=== PATIENT | male | born 1940 | race Caucasian/White ===

== ENCOUNTER 2020-02-17 02:34 | Inpatient (IN) ==
[2020-02-17] MEDS ORDERED: LACTATED RINGERS 500 ML IV PRN (02:37)
[2020-02-17] MEDS ORDERED: SODIUM BICARBONATE VIAL 150 MEQ in DEXTROSE 5% IN WATER 850 ML IV SCH (02:45)
[2020-02-17] MEDS ORDERED: SODIUM BICARBONATE 50 MEQ/50 ML VIAL ONE (04:01)
[2020-02-17 06:40] LABS: Basophils # (Auto) 0.01 K/mcL (0.00-0.20); Basophils % (Auto) 0.1 % (0.0-2.0); Eosinophils # (Auto) 0.01 K/mcL (0.00-0.70); Eosinophils % (Auto) 0.1 % (0.0-7.0); Hematocrit 36.3 % (41.0-55.0); Lymphocytes # (Auto) 2.23 K/mcL (1.50-4.80); Lymphocytes % (Auto) 19.8 % (15.0-49.0); Mean Cell Volume 93.1 fL (80.0-100.0); Mean Corpuscular HGB Conc 33.1 g/dL (31.0-36.0); Mean Platelet Volume 9.7 fL (7.4-10.4); Monocytes # (Auto) 1.08 K/mcL (0.10-0.90); Monocytes % (Auto) 9.6 % (1.0-12.0); Neutrophils % (Auto) 70.4 % (38.0-78.0); Platelet Count 162 K/mcL (140-440); WBC 11.3 K/mcL (4.5-11.0)
[2020-02-17 07:15] LABS: Appearance,Urine CLOUDY (Clear); Bilirubin,Urine Negative (Negative); Color,Urine YELLOW; Culture Indicated,Urine No; Glucose,Urine (UA) Negative (Negative); Ketones,Urine 5 mg/dL (Negative); Leukocyte Esterase,Urine Negative /ug (Negative); Mucus,Urine MOD /hpf; Nitrate,Urine Negative (Negative); Protein,Urine 100 mg/dL (Negative); Specific Gravity,Urine 1.014 (1.000-1.035); Urine Amorphous Crystals FEW /hpf; Urine Blood >=1.0 mg/dL (Negative); Urine Granular Cast 21 /lph (0-0); Urine Hyaline Cast 32 /lph (0-2); Urine RBC 0 /hpf (0-1); Urine Squamous Epithelial Cell < 1 /hpf (0-4); Urine Transitional Epi Cells 1 /hpf (0-2); Urine WBC 5 /hpf (0-4); Urobilinogen,Urine Negative
[2020-02-17 07:30] LABS: Creatine Kinase MB 121.5 ng/mL (<6.7)
--- NOTE | 2020-02-17 07:48 | Internal Med History&Physical ---
HPI History of Present Illness Patient information: Note initiated : 02/17/20 at 7:43 am Service Date, if different from initiated Date: [] Patient: Harley Adkins 79 y/o M admitted on 02/17/20 for Acute Renal Failure. Chief Complaint: [] History of present illness: Mr. Adkins is a 79 year old M Who fell several days ago in his bathroom. He says he was wedged between the toilet and the cabinet. He was little unable to get up and then became so stiff he could move. He says he stayed there for day and a half. And started pounding on the wall and his neighbor heard him came in and called EMS who was able to get him up ambulating. He was evaluated in [facility] he had x-rays done which were unremarkable. Old notes he has a history of falling. In the ED at [facility] was evaluated and found to have acute kidney injury. The rhabdomyolysis. He was transferred to [facility] due to staffing issues at [facility] Feels much better with IV fluid hydration. Review of Systems: Pertinent positives as above. Denies head ache/fever/chills/nausea/vomiting/chest or abdominal pain/cough/dyspnea/diarrhea. Remaining 10 point review of system reviewed negative PFSH PFSH All Active Problems (Updated 01/20/20 @ 15:26 by SHYANNE Keita) Renal failure (Acute) Chronic pain after cancer treatment (Acute) Hx of CT scan (Chronic ~08/2017) CRF (chronic renal failure) (Chronic ~08/2009) History of MRI (Chronic) Primary bladder squamous cell carcinoma (Chronic ~1997) B-cell lymphoma (Chronic) Low back pain (Chronic) Neuropathy (Chronic) Hx of bladder cancer (Chronic) Cigarette nicotine dependence (Chronic) Localized swelling, mass and lump, unspecified (Chronic) Other cervical disc degeneration, unspecified cervical region (Chronic) Chronic pain syndrome (Chronic) Candidiasis (Chronic) Hyperkalemia (Chronic) Physical exam (Chronic) Carotid artery disease (Chronic) Encounter for screening, unspecified (Chronic) Lumbar back pain with radiculopathy affecting lower extremity (Acute) History of excision of lesion (Chronic) H/O cystoscopy (Chronic) History of surgery (Chronic) History of surgery (Chronic) H/O colonoscopy (Chronic) CAD (coronary artery disease) (Chronic) Cholelithiasis (Chronic) Abnormal liver function test (Chronic) Neck pain (Chronic) Vitamin B 12 deficiency (Chronic) Degeneration, intervertebral disc, cervical (Chronic) Leg edema (Chronic) Candidiasis of skin (Chronic) Chronic rhinitis (Chronic) Tobacco use (Chronic) Cigarette smoker (Chronic) Pipe smoker (Chronic) Abnormal carotid ultrasound (Chronic) AAA (abdominal aortic aneurysm) (Chronic) Lung nodule (Chronic) Chronic pain (Chronic) Elevated LFTs (Chronic ~08/2009) Gout (Chronic ~07/2009) Herpes zoster (Chronic ~05/2008) Multiple lipomas (Chronic) Back pain with radiculopathy (Chronic) History of scarlet fever (Chronic) Rash (Chronic) Arthritis (Chronic) Hepatitis A (Chronic) Lactose intolerance (Chronic) Pain management contract agreement (Chronic ~05/2016) Heart murmur (Chronic) IgM lambda monoclonal gammopathy (Chronic) Atherosclerosis (Chronic) Hx of cataract surgery (Chronic) Back pain (Chronic) H/O angioplasty (Chronic) Non-Hodgkin lymphoma (Chronic) Small cell b-cell lymphoma, extranodal and solid organ sites (Chronic) Monoclonal gammopathy (Chronic) Vitamin D deficiency (Chronic) Spondylosis (Chronic) Renal osteodystrophy (Chronic) PVD (peripheral vascular disease) (Chronic) Hyperlipidemia (Chronic) Hypertension (Chronic) Personal history of other endocrine, metabolic, and immunity disorders (Chronic) Congenital single renal cyst (Chronic) CKD (chronic kidney disease), stage III (Chronic) Bladder cancer (Chronic) Medical History (Updated 01/20/20 @ 15:26 by SHYANNE Keita) AAA (abdominal aortic aneurysm) (Chronic) Plaque Abnormal carotid ultrasound (Chronic) 09/03 <50% Abnormal liver function test (Chronic) Arthritis (Chronic) Atherosclerosis (Chronic) B-cell lymphoma (Chronic) DR LUI Back pain (Chronic) Nonmalignant back pain Back pain with radiculopathy (Chronic) along his spine Bladder cancer (Chronic) 1997, 2000 CAD (coronary artery disease) (Chronic) Candidiasis (Chronic) Candidiasis of skin (Chronic) Carotid artery disease (Chronic) Cholelithiasis (Chronic) Chronic pain (Chronic) Chronic pain syndrome (Chronic) Chronic rhinitis (Chronic) Cigarette nicotine dependence (Chronic) Cigarette smoker (Chronic) CKD (chronic kidney disease), stage III (Chronic) Congenital single renal cyst (Chronic) CRF (chronic renal failure) (Chronic ~08/2009) STAGE 3, REFERRED TO NEPHROLOGY Degeneration, intervertebral disc, cervical (Chronic) Elevated LFTs (Chronic ~08/2009) Stop statin Encounter for screening, unspecified (Chronic) Gout (Chronic ~07/2009) Left elbow Heart murmur (Chronic) Hepatitis A (Chronic) Herpes zoster (Chronic ~05/2008) Left lateral abdomen History of MRI (Chronic) 15 YRS AGO History of scarlet fever (Chronic) Hx of bladder cancer (Chronic) Hx of CT scan (Chronic ~08/2017) LUNG, NODULE Hyperkalemia (Chronic) Hyperlipidemia (Chronic) Hypertension (Chronic) IgM lambda monoclonal gammopathy (Chronic) Lactose intolerance (Chronic) Leg edema (Chronic) Localized swelling, mass and lump, unspecified (Chronic) Low back pain (Chronic) Lumbar back pain with radiculopathy affecting lower extremity (Acute) Lung nodule (Chronic) 08/03 CT of lungs Monoclonal gammopathy (Chronic) Multiple lipomas (Chronic) Neck pain (Chronic) Neuropathy (Chronic) Non-Hodgkin lymphoma (Chronic) Other cervical disc degeneration, unspecified cervical region (Chronic) Pain management contract agreement (Chronic ~05/2016) Personal history of other endocrine, metabolic, and immunity disorders (Chronic) Physical exam (Chronic) Pipe smoker (Chronic) Primary bladder squamous cell carcinoma (Chronic ~1997) ALSO 2001 PVD (peripheral vascular disease) (Chronic) Stent placement x2 in 2006. 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 Tang. In [address] Tang for surveillance of bladder cancer. History of excision of lesion (Chronic) Malignant skin lesion History of surgery (Chronic) [address] Ferrell History of surgery (Chronic) 2007 Left leg stent placement x2 Hx of cataract surgery (Chronic) Both eyes Family History Father , at age 73 Cancer Grandmother Cancer Paternal Stroke Maternal Mother , at age 69 Stroke Hypertension, essential Unknown Family history of lymphatic and hematopoietic neoplasms Rheumatoid arthritis Son , age 3 Accident Social History household members: alone marital status: education level: college occupational status: retired leisure activities: art, music and other other: Hobbies: Painting, [place], Music physical activity: walking frequency: daily smoking status: Light tobacco smoker tobacco type: cigarettes and pipe alcohol intake frequency: does not drink substance use type: former substance user and crack/cocaine toña/druze: None seatbelt use: always MEDS/ALLERGIES Home Medications and Allergies Home Medications Medication Instructions Recorded Confirmed Type allopurinol 100 mg tablet 100 mg PO QDAY 02/10/19 01/20/20 History flunisolide 25 mcg (0.025 %) nasal 2 spray INTRANASAL QDAY PRN ml 02/10/19 02/17/20 History spray naloxone 4 mg/actuation nasal spray 1 spray INTRANASAL ONCE each 02/10/19 02/17/20 History gabapentin 300 mg capsule 300 mg PO TID #270 cap 05/22/19 02/17/20 Rx pravastatin 40 mg tablet 40 mg PO QHS #90 tab 11/14/19 02/17/20 Rx triamcinolone acetonide 0.1 % 1 applic TOPICAL BID PRN #60 g 12/01/19 02/17/20 Rx topical cream cholecalciferol (vitamin D3) 1,250 1,250 mcg PO QWEEK #4 cap 01/23/20 02/17/20 Rx mcg (50,000 unit) capsule clopidogrel 75 mg tablet 75 mg PO QDAY #90 tab 02/05/20 02/17/20 Rx morphine 30 mg tablet,extended 30 mg PO Q12H #60 tab 02/05/20 02/17/20 Rx release morphine 60 mg tablet,extended 60 mg PO Q12H #60 tab 02/05/20 02/17/20 Rx release olmesartan [Benicar] 40 mg PO QDAY 02/17/20 02/17/20 History polyethylene glycol 3350 17 g PO QDAY PRN 02/17/20 02/17/20 History Allergies Allergy/AdvReac Type Severity Reaction Status Date / Time No Known Drug Allergies Allergy Verified 01/20/20 07:27 EXAM Constitutional Vitals: Temp Pulse Resp BP Pulse Ox 97.3 F 72 22 103/64 90 02/17/20 07:12 02/17/20 07:12 02/17/20 07:12 02/17/20 07:12 02/17/20 07:12 Exam: General: Alert, Awake, No acute Distress Eyes/N/T: EOMI, PERRL, dry MM Head/Neck: neck supple, normocephalic atraumatic CV: RRR, No murmurs, normal s1/s2 Pulm: Clear b/l, no wheezing/rhonchi/rales Abd: soft, nontender, +BS x4 Ext: no clubbing/cyanosis/edema Neuro: Alert, no focal deficits, moves all extremities, CN 2-12 grossly intact, symmetrical strength b/l upper/lower, sensations intact b/l upper/lower Skin: warm/dry DATA Data Completed and Pending Labs: Labs from last 24 hours 02/17/20 02/17/20 02/17/20 05:30 05:30 05:15 WBC 11.3 H RBC 3.90 L Hgb 12.0 L Hct 36.3 L MCV 93.1 MCH 30.8 MCHC 33.1 RDW 13.0 Plt Count 162 MPV 9.7 Neut % (Auto) 70.4 Lymph % (Auto) 19.8 [place] % (Auto) 9.6 Eos % (Auto) 0.1 Baso % (Auto) 0.1 Lymph # (Auto) 2.23 [place] # (Auto) 1.08 H Eos # (Auto) 0.01 Baso # (Auto) 0.01 Absolute Neutrophils 7.95 Sodium Pending Potassium Pending Chloride Pending Carbon Dioxide Pending Anion Gap Pending BUN Pending Creatinine Pending GFR Calculation Pending Glucose Pending Uric Acid Pending Calcium Pending Phosphorus Pending Magnesium Pending Total Bilirubin Pending Direct Bilirubin Pending GGT Pending AST Pending ALT Pending Alkaline Phosphatase Pending Lactate Dehydrogenase Pending CK-MB (CK-2) 121.5 H Total Protein Pending Albumin Pending Globulin Pending Albumin/Globulin Ratio Pending Triglycerides Pending Urine Color Yellow Urine Appearance Cloudy A Urine pH 6.0 Ur Specific [place] 1.014 Urine Protein 100 A Urine Glucose (UA) Negative Urine Ketones 5 A Urine Occult Blood >=1.0 A Urine Nitrate Negative Urine Bilirubin Negative Urine Urobilinogen Negative Ur Leukocyte Esterase Negative Urine RBC 0 Urine WBC 5 H Ur Squamous Epith Cells < 1 Ur Transition Epith Cell 1 Amorphous Crystals Few A Urine Bacteria None Hyaline Casts 32 H Granular Casts 21 H Urine Mucus Mod A Ur Culture Indicated? No A/P Narrative A/P Narrative: A: *JERONIMO on CKD : -Cr 5.8>5.0 *volume depletion: *Rhabdomyolysis: 2/2 duration on ground *Metabolic acidosis: 2/2 above *h/o Falling/generalized weakness/deconditioning: *h/o Lymphoma: follows with Dr. Lui *Chronic Pain w/neuropathy: *HTN/HLD: *PVD (LE stents): Plavix *Tobacco abuse: * P: -bicarb gtt, alkanalize urine, recheck UA -monitor i/o -f/u cpk -fall precautions -hold ARB for JERONIMO -hold sedating meds 2/2 falls -cont home plavix -PT/OT -ppx: Lovenox full code Time Spent With Patient Time: Total time spent is greater than 50% in coordination of care (as documented) at patient's floor/unit and/or counseling patient: QUALITY VTE Deep Vein Thrombosis/Pulmonary Embolism Present on Admission: No
[2020-02-17 08:04] LABS: ALT/SGPT 45 U/L (<40); AST/SGOT 132 U/L (<40); Albumin 3.4 gm/dL (3.2-5.2); Albumin/Globulin Ratio 1.2 (1.0-2.3); Alkaline Phosphatase 96 U/L (39-117); Bilirubin,Direct < 0.2 mg/dL (<0.3); Bilirubin,Total 0.3 mg/dL (0.1-1.0); Blood Urea Nitrogen 104 mg/dL (8-23); Calcium 7.3 mg/dL (8.6-10.4); Carbon Dioxide 18 mmol/L (22-30); Chloride 101 mmol/L (96-108); Globulin 2.8 gm/dL (2.2-3.7); Glomerular Filtration Rate 10; Glucose 97 mg/dL (70-105); Lactate Dehydrogenase 427 U/L (135-225); Phosphorous 7.7 mg/dL (2.5-4.5); Triglycerides 132 mg/dL (<150); Uric Acid 13.6 mg/dL (2.5-8.0)
[2020-02-17] MEDS ORDERED: POLYETHYLENE GLYCOL 3350 17 GM PACKET PO PRN (08:11)
[2020-02-17] MEDS ORDERED: POTASSIUM CHLORIDE 40 MEQ in DEXTROSE 5% IN WATER 500 ML IV PRN (08:11)
[2020-02-17] MEDS ORDERED: IPRATROPIUM/ALBUTEROL 3 ML AMPUL.NEB NEB PRN (08:11)
[2020-02-17] MEDS ORDERED: ACETAMINOPHEN 325 MG TABLET PO PRN (08:11)
[2020-02-17] MEDS ORDERED: SENNOSIDES 1 TABLET PO PRN (08:11)
[2020-02-17] MEDS ORDERED: MAGNESIUM SULFATE 2 GM/50 ML BAG IV PRN (08:11)
[2020-02-17] MEDS ORDERED: POTASSIUM CHLORIDE 20 MEQ TABLET PO PRN ×2 (08:11)
[2020-02-17] MEDS ORDERED: ONDANSETRON 4 MG/2 ML VIAL IV PRN (08:11)
[2020-02-17] MEDS ORDERED: NALOXONE INTRANASAL SCH (08:15)
[2020-02-17] MEDS: HEPARIN 5,000 UNIT/ML VIAL SQ SCH ×2 (12:01→20:36)
[2020-02-17] MEDS: DOCUSATE SODIUM 100 MG CAPSULE PO SCH ×2 (12:01→20:37)
[2020-02-17] MEDS: CLOPIDOGREL 75 MG TABLET PO SCH (12:02)
[2020-02-17] MEDS: morphine 30 MG TAB.SR.12H PO SCH ×2 (12:02→20:37)
[2020-02-17] MEDS: GABAPENTIN 300 MG CAPSULE PO SCH ×3 (12:03→20:37)
[2020-02-17] MEDS: SODIUM BICARBONATE VIAL 150 MEQ in DEXTROSE 5% IN WATER 850 ML IV SCH ×2 (14:37→23:06)
[2020-02-17] MEDS: 0.9 % SODIUM CHLORIDE 10 ML SYRINGE IV SCH ×2 (14:37→20:44)
[2020-02-17] MEDS ORDERED: diphenhydrAMINE 50 MG/ML VIAL IV ONE (21:20)
[2020-02-17] MEDS ORDERED: diphenhydrAMINE 50 MG/ML VIAL IV PRN (21:24)
[2020-02-17] MEDS ORDERED: diphenhydrAMINE 50 MG/ML VIAL ONE (21:30)
[2020-02-18] MEDS: 0.9 % SODIUM CHLORIDE 10 ML SYRINGE IV SCH ×3 (05:13→20:41)
[2020-02-18 06:22] LABS: Basophils # (Auto) 0.01 K/mcL (0.00-0.20); Basophils % (Auto) 0.2 % (0.0-2.0); Eosinophils # (Auto) 0.03 K/mcL (0.00-0.70); Eosinophils % (Auto) 0.5 % (0.0-7.0); Hematocrit 30.9 % (41.0-55.0); Hemoglobin 10.6 g/dL (13.5-16.5); Lymphocytes # (Auto) 1.54 K/mcL (1.50-4.80); Lymphocytes % (Auto) 23.2 % (15.0-49.0); Mean Cell Volume 90.9 fL (80.0-100.0); Mean Corpuscular HGB Conc 34.3 g/dL (31.0-36.0); Mean Platelet Volume 9.7 fL (7.4-10.4); Monocytes # (Auto) 0.78 K/mcL (0.10-0.90); Monocytes % (Auto) 11.8 % (1.0-12.0); Neutrophils % (Auto) 64.3 % (38.0-78.0); Platelet Count 139 K/mcL (140-440); Red Cell Distribution Width 13.1 % (11.5-14.5); WBC 6.6 K/mcL (4.5-11.0)
[2020-02-18] MEDS: SODIUM BICARBONATE VIAL 150 MEQ in DEXTROSE 5% IN WATER 850 ML IV SCH (06:54)
[2020-02-18 07:19] LABS: ALT/SGPT 39 U/L (<40); AST/SGOT 94 U/L (<40); Albumin/Globulin Ratio 1.3 (1.0-2.3); Alkaline Phosphatase 76 U/L (39-117); Bilirubin,Direct < 0.2 mg/dL (<0.3); Bilirubin,Total 0.4 mg/dL (0.1-1.0); Blood Urea Nitrogen 83 mg/dL (8-23); Carbon Dioxide 31 mmol/L (22-30); Chloride 102 mmol/L (96-108); Globulin 2.4 gm/dL (2.2-3.7); Glomerular Filtration Rate 21; Glucose 145 mg/dL (70-105); Lactate Dehydrogenase 370 U/L (135-225); Phosphorous 3.3 mg/dL (2.5-4.5); Triglycerides 122 mg/dL (<150); Uric Acid 12.3 mg/dL (2.5-8.0)
--- NOTE | 2020-02-18 08:09 | Internal Med Progress Note ---
SUBJECTIVE Subjective Patient information: Note initiated : 02/18/20 at 8:06 am Service Date, if different from initiated Date: [] Patient: Harley Adkins 79 y/o M admitted on 02/17/20 for Acute Renal Failure. Chief Complaint: [] Interval history: History of present illness: Mr. Adkins is a 79 year old M Who fell several days ago in his bathroom. He says he was wedged between the toilet and the cabinet. He was little unable to get up and then became so stiff he could move. He says he stayed there for day and a half. And started pounding on the wall and his neighbor heard him came in and called EMS who was able to get him up ambulating. He was evaluated in [facility] he had x-rays done which were unremarkable. Old notes he has a history of falling. In the ED at [facility] was evaluated and found to have acute kidney injury. The rhabdomyolysis. He was transferred to [facility] due to staffing issues at [facility] Feels much better with IV fluid hydration. 02/17 Feeling better. Renal function improved. He does have mild clonus of his hands which she has had for about 4 months. Has not seen neurology. Review of Systems: denies headache/fever/chills/nausea/vomiting/chest or abdominal pain/cough/dyspnea/diarrhea. Otherwise see above. Constitutional Vitals: Vital Signs Temp Pulse Resp BP Pulse Ox 98.7 F 71 22 109/64 92 02/18/20 08:00 02/18/20 08:00 02/18/20 08:00 02/18/20 08:00 02/18/20 08:00 Period Temp Pulse Resp BP Sys/Diamond Pulse Ox Last 24 Hr 97.5 F-98.7 F 71-100 12-22 81-140/49-71 91-95 Intake and Output 02/17/20 02/18/20 02/18/20 21:59 05:59 13:59 Intake Total 300 1150 936 Output Total 700 1650 Balance -400 -500 936 Weight 92.17 kg Intake & Output: Intake & Output 02/17/20 02/18/20 02/18/20 21:59 05:59 13:59 Intake Total 300 1150 936 Output Total 700 1650 Balance -400 -500 936 Weight 92.17 kg Intake: IV 1000 936 Sodium Bicarbonate Vial 150 Meq 1000 936 In Dextrose 5% in Water 850 ml @ 120 mls/hr IV Q8H [facility] Rx#: [id number] Oral 300 150 Output: Urine Catheter Amount 700 1650 Other: Meal Lunch Percent of Meal Consumed 100% Urine Appearance Clear Uretheral (Ibrahim) Clear Urine Color Dark Yellow Uretheral (Ibrahim) Dark Yellow Stool Size Small Stool Color Brown Stool Consistency Loose Exam: General: Alert, Awake, No acute Distress Eyes/N/T: EOMI, Head/Neck: neck supple, CV: RRR, No murmurs, normal s1/s2 Pulm: Clear b/l, no wheezing/rhonchi/rales Abd: soft, nontender, +BS x4 Ext: no clubbing/cyanosis/edema Neuro: Alert, no focal deficits, moves all extremities, Skin: warm/dry OBJ DATA Labs CBC & Chem 7: 02/18/20 05:31 02/18/20 05:31 Labs: Abnormal Lab Results 02/18/20 02/18/20 02/18/20 05:31 05:31 05:31 WBC RBC 3.40 L Hgb 10.6 L Hct 30.9 L Plt Count 139 L [place] # (Auto) Carbon Dioxide 31 H Anion Gap BUN 83 H Creatinine 2.8 H Glucose 145 H Uric Acid 12.3 H Calcium 8.0 L Phosphorus AST 94 H ALT Lactate Dehydrogenase 370 H Total Creatine Kinase 3671 H CK-MB (CK-2) Total Protein 5.4 L Albumin 3.0 L Urine Appearance Urine Protein Urine Ketones Urine Occult Blood Urine WBC Amorphous Crystals Hyaline Casts Granular Casts Urine Mucus 02/17/20 02/17/20 02/17/20 05:33 05:30 05:30 WBC 11.3 H RBC 3.90 L Hgb 12.0 L Hct 36.3 L Plt Count [place] # (Auto) 1.08 H Carbon Dioxide 18 L Anion Gap 18.0 H BUN 104 H* Creatinine 5.0 H* Glucose Uric Acid 13.6 H Calcium 7.3 L Phosphorus 7.7 H* AST 132 H ALT 45 H Lactate Dehydrogenase 427 H Total Creatine Kinase 6496 H CK-MB (CK-2) 121.5 H Total Protein Albumin Urine Appearance Urine Protein Urine Ketones Urine Occult Blood Urine WBC Amorphous Crystals Hyaline Casts Granular Casts Urine Mucus 02/17/20 05:15 WBC RBC Hgb Hct Plt Count [place] # (Auto) Carbon Dioxide Anion Gap BUN Creatinine Glucose Uric Acid Calcium Phosphorus AST ALT Lactate Dehydrogenase Total Creatine Kinase CK-MB (CK-2) Total Protein Albumin Urine Appearance Cloudy A Urine Protein 100 A Urine Ketones 5 A Urine Occult Blood >=1.0 A Urine WBC 5 H Amorphous Crystals Few A Hyaline Casts 32 H Granular Casts 21 H Urine Mucus Mod A Meds: Medications Acetaminophen (Tylenol) 650 mg PO Q6HP PRN PRN Reason: PAIN/FEVER > 101 Albuterol/Ipratropium (Duoneb) 3 ml NEB Q4HP PRN PRN Reason: Shortness Of Breath Clopidogrel Bisulfate (Plavix) 75 mg PO QDAY [facility] Last Admin: 02/17/20 12:02 Dose: 75 mg Documented by: Diphenhydramine HCl (Benadryl) 25 mg IV Q4HP PRN PRN Reason: Allergic Symptoms Docusate Sodium (Colace) 100 mg PO BID [facility] Last Admin: 02/17/20 20:37 Dose: 100 mg Documented by: Gabapentin (Neurontin) 300 mg PO TID [facility] Last Admin: 02/17/20 20:37 Dose: 300 mg Documented by: Heparin Sodium (Porcine) (Heparin) 5,000 unit SQ Q12 [facility] Last Admin: 02/17/20 20:36 Dose: 5,000 unit Documented by: Lactated Ringer's (Lactated Ringers) 500 mls @ 0 mls/hr IV PRN PRN PRN Reason: Hypotension Last Admin: 02/17/20 12:08 Dose: 500 mls/hr Documented by: Potassium Chloride 40 meq/ (Dextrose) 520 mls @ 130 mls/hr IV UD PRN PRN Reason: Potassium < 3 Magnesium Sulfate (Magnesium Sulfate) 2 gm in 50 mls @ 50 mls/hr IV UD PRN PRN Reason: Magnesium </= 1.6 Sodium Bicarbonate 150 meq/ (Dextrose) 1,000 mls @ 120 mls/hr IV Q8H [facility] Last Admin: 02/18/20 06:54 Dose: 120 mls/hr Documented by: Morphine Sulfate (Ms Contin) 30 mg PO Q12H [facility]; Protocol Last Admin: 02/17/20 20:37 Dose: 30 mg Documented by: Ondansetron HCl (Zofran) 4 mg IV Q4HP PRN PRN Reason: Nausea And Vomiting Polyethylene Glycol (Miralax) 17 gm PO DAILYP PRN PRN Reason: Constipation Potassium Chloride (Kdur) 40 meq PO UD PRN PRN Reason: Potssium is 3-3.5 Potassium Chloride (Kdur) 40 meq PO UD PRN PRN Reason: Potassium < 3 Senna (Senokot) 2 tab PO DAILYP PRN PRN Reason: Constipation Sodium Chloride (Saline Flush) 10 ml IV Q8 [facility] Last Admin: 02/18/20 05:13 Dose: Not Given Documented by: A/P Narrative A/P Narrative: A: *JERONIMO on CKD III: improving -Cr 5.8>>2.8 *volume depletion: improved *Rhabdomyolysis: 2/2 duration on ground -improving *Metabolic acidosis: 2/2 above, resolved *h/o Falling/generalized weakness/deconditioning: *h/o Lymphoma: follows with Dr. Lui *Chronic Pain w/neuropathy: *HTN/HLD: *PVD (LE stents): Plavix *Tobacco abuse: *chronic b/l UE myoclonus: will need f/u with neuro *Nighttime confusion, possible sundowning, clear today: -CT in August unremarkable P: -bicarb gtt d/c, alkanalize urine, recheck UA -monitor i/o -f/u cpk -fall precautions -hold ARB for JERONIMO -hold sedating meds 2/2 falls -cont home plavix -PT/OT -f/u with neurology for chronic b/l UE mycolonus -ppx: Lovenox full code Time Spent With Patient Time: Total time spent is greater than 50% in coordination of care (as documented) at patient's floor/unit and/or counseling patient: QUALITY VTE Deep Vein Thrombosis/Pulmonary Embolism Present on Admission: No
[2020-02-18] MEDS: CLOPIDOGREL 75 MG TABLET PO SCH (08:34)
[2020-02-18] MEDS: morphine 30 MG TAB.SR.12H PO SCH ×2 (08:34→20:41)
[2020-02-18] MEDS: DOCUSATE SODIUM 100 MG CAPSULE PO SCH ×2 (08:34→20:41)
[2020-02-18] MEDS: HEPARIN 5,000 UNIT/ML VIAL SQ SCH ×2 (08:34→20:41)
[2020-02-18] MEDS: GABAPENTIN 300 MG CAPSULE PO SCH ×3 (08:34→20:40)
[2020-02-18] MEDS ORDERED: 0.9 % SODIUM CHLORIDE 500 ML IV SCH (08:45)
[2020-02-18 09:03] LABS: Appearance,Urine CLEAR (Clear); Bilirubin,Urine Negative (Negative); Color,Urine STRAW; Culture Indicated,Urine No; Glucose,Urine (UA) Negative (Negative); Ketones,Urine Negative (Negative); Leukocyte Esterase,Urine Negative /ug (Negative); Mucus,Urine FEW /hpf; Nitrate,Urine Negative (Negative); Protein,Urine Negative (Negative); Specific Gravity,Urine 1.011 (1.000-1.035); Urine Blood 0.03 mg/dL (Negative); Urine RBC 6 /hpf (0-1); Urine Squamous Epithelial Cell 0 /hpf (0-4); Urine WBC 0 /hpf (0-4); Urobilinogen,Urine Negative
[2020-02-18] MEDS ORDERED: FLU VACC QS2020-21(6MOS UP)/PF 60 MCG/0.5 ML SYRINGE IM ONE (10:00)
--- NOTE | 2020-02-18 10:11 | Discharge Summary ---
Discharge Provider Provider Patient information: Note initiated : 02/18/20 at 10:09 am Service Date, if different from initiated Date: [] Patient: Harley Adkins 79 y/o M admitted on 02/17/20 for Acute Renal Failure. Chief Complaint: [] Date of admission: 02/17/20 03:35 Discharge date: 02/19/20 Primary care physician: Cee Rodriguez Discharge Meds Discharge Medications Home Medications allopurinol 100 mg tablet 100 mg PO QDAY 02/10/19 [History Confirmed 02/18/20 Last Taken Unknown] flunisolide 25 mcg (0.025 %) nasal spray 2 spray INTRANASAL QDAY PRN ml 02/10/19 [History Confirmed 02/17/20 Last Taken Unknown] naloxone 4 mg/actuation nasal spray 1 spray INTRANASAL ONCE each 02/10/19 [History Confirmed 02/17/20 Last Taken Unknown] gabapentin 300 mg capsule 300 mg PO TID #270 cap 05/22/19 [Rx Confirmed 02/17/20 Last Taken 02/15/20] pravastatin 40 mg tablet 40 mg PO QHS #90 tab 11/14/19 [Rx Confirmed 02/17/20 Last Taken 02/15/20] triamcinolone acetonide 0.1 % topical cream 1 applic TOPICAL BID PRN #60 g 12/01/19 [Rx Confirmed 02/17/20 Last Taken Unknown] cholecalciferol (vitamin D3) 1,250 mcg (50,000 unit) capsule 1,250 mcg PO QWEEK #4 cap 01/23/20 [Rx Confirmed 02/17/20 Last Taken Unknown] clopidogrel 75 mg tablet 75 mg PO QDAY #90 tab 02/05/20 [Rx Confirmed 02/17/20 Last Taken Unknown] morphine 30 mg tablet,extended release 30 mg PO Q12H #60 tab 02/05/20 [Rx Confirmed 02/17/20 Last Taken 02/15/20] olmesartan [Benicar] 40 mg PO QDAY 02/17/20 [History Confirmed 02/17/20 Last Taken 02/15/20] polyethylene glycol 3350 17 g PO QDAY PRN 02/17/20 [History Confirmed 02/17/20 Last Taken Unknown] COURSE Hospital Course Hospital course: History of present illness: Mr. Adkins is a 79 year old M Who fell several days ago in his bathroom. He says he was wedged between the toilet and the cabinet. He was little unable to get up and then became so stiff he could move. He says he stayed there for day and a half. And started pounding on the wall and his neighbor heard him came in and called EMS who was able to get him up ambulating. He was evaluated in [facility] he had x-rays done which were unremarkable. Old notes he has a history of falling. In the ED at [facility] was evaluated and found to have acute kidney injury. The rhabdomyolysis. He was transferred to [facility] due to staffing issues at [facility] Feels much better with IV fluid hydration. 02/17 Feeling better. Renal function improved. He does have mild clonus of his hands which she has had for about 4 months. Has not seen neurology. 02/18 Doing well. Renal function much improved. Creatinine kinase much improved. Patient stable for discharge. A: *JERONIMO on CKD III: improving *volume depletion: improved *Rhabdomyolysis: 2/2 duration [address] ground *Metabolic acidosis: 2/2 above, resolved *h/o Falling/generalized weakness/deconditioning: *h/o Lymphoma: follows with Dr. Lui *Chronic Pain w/neuropathy: *HTN/HLD: *PVD (LE stents): Plavix *Tobacco abuse: *chronic b/l UE myoclonus: will need f/u with neuro *Nighttime confusion, possible ing, clear today: -CT in August unremarkable Discharge diagnosis: Acute kidney injury volume depletion rhabdomyolysis metabolic acidosis Secondary discharge diagnosis: Generalized weakness deconditioning following history of lymphoma chronic pain neuropathy hypertension peripheral vascular disease tobacco abuse myoclonus of the upper extremities Time Spent with Patient Time attestation: Total time spent providing and/or coordinating discharge services: Time spent: Greater than 30 minutes EXAM Constitutional Vitals: Temp Pulse Resp BP Pulse Ox 98.7 F 71 22 109/64 92 02/18/20 08:00 02/18/20 08:00 02/18/20 08:00 02/18/20 08:00 02/18/20 08:00 Discharge Data Data Completed and Pending Labs on day of discharge: Labs from last 24 hours 02/18/20 02/18/20 02/18/20 08:06 05:31 05:31 WBC 6.6 RBC 3.40 L Hgb 10.6 L Hct 30.9 L MCV 90.9 MCH 31.2 MCHC 34.3 RDW 13.1 Plt Count 139 L MPV 9.7 Neut % (Auto) 64.3 Lymph % (Auto) 23.2 Mcdonough % (Auto) 11.8 Eos % (Auto) 0.5 Baso % (Auto) 0.2 Lymph # (Auto) 1.54 Mcdonough # (Auto) 0.78 Eos # (Auto) 0.03 Baso # (Auto) 0.01 Absolute Neutrophils 4.27 Sodium 143 Potassium 3.3 Chloride 102 Carbon Dioxide 31 H Anion Gap 10.0 BUN 83 H Creatinine 2.8 H GFR Calculation 21 Glucose 145 H Uric Acid 12.3 H Calcium 8.0 L Phosphorus 3.3 Magnesium 2.1 Total Bilirubin 0.4 Direct Bilirubin < 0.2 GGT 14 AST 94 H ALT 39 Alkaline Phosphatase 76 Lactate Dehydrogenase 370 H Total Creatine Kinase Total Protein 5.4 L Albumin 3.0 L Globulin 2.4 Albumin/Globulin Ratio 1.3 Triglycerides 122 Urine Color Straw Urine Appearance Clear Urine pH 8.0 Ur Specific [place] 1.011 Urine Protein Negative Urine Glucose (UA) Negative Urine Ketones Negative Urine Occult Blood 0.03 Urine Nitrate Negative Urine Bilirubin Negative Urine Urobilinogen Negative Ur Leukocyte Esterase Negative Urine RBC 6 H Urine WBC 0 Ur Squamous Epith Cells 0 Urine Bacteria None Urine Mucus Few A Ur Culture Indicated? No 02/18/20 02/17/20 05:31 05:33 WBC RBC Hgb Hct MCV MCH MCHC RDW Plt Count MPV Neut % (Auto) Lymph % (Auto) Mcdonough % (Auto) Eos % (Auto) Baso % (Auto) Lymph # (Auto) Mcdonough # (Auto) Eos # (Auto) Baso # (Auto) Absolute Neutrophils Sodium Potassium Chloride Carbon Dioxide Anion Gap BUN Creatinine GFR Calculation Glucose Uric Acid Calcium Phosphorus Magnesium Total Bilirubin Direct Bilirubin GGT AST ALT Alkaline Phosphatase Lactate Dehydrogenase Total Creatine Kinase 3671 H 6496 H Total Protein Albumin Globulin Albumin/Globulin Ratio Triglycerides Urine Color Urine Appearance Urine pH Ur Specific [place] Urine Protein Urine Glucose (UA) Urine Ketones Urine Occult Blood Urine Nitrate Urine Bilirubin Urine Urobilinogen Ur Leukocyte Esterase Urine RBC Urine WBC Ur Squamous Epith Cells Urine Bacteria Urine Mucus Ur Culture Indicated? Discharge Plan Patient/Caregiver Discharge Instructions Activity: increase activity as tolerated Diet: Regular Diet Activity Restrictions/Additional Instructions: Follow-up with PCP in 3 to 7 days Referral to see neurology and 5 to 14 days for bilateral arm myoclonus Prescriptions: Continued gabapentin 300 mg capsule 300 mg PO TID Qty: 270 RF: 0 pravastatin 40 mg tablet 40 mg PO QHS Qty: 90 RF: 0 triamcinolone acetonide 0.1 % cream 1 applic TOPICAL BID PRN (Reason: Eczema) Qty: 60 RF: 4 cholecalciferol (vitamin D3) 1,250 mcg (50,000 unit) capsule 1,250 mcg PO QWEEK Qty: 4 RF: 5 clopidogrel 75 mg tablet 75 mg PO QDAY Qty: 90 RF: 4 morphine 30 mg tablet extended release 30 mg PO Q12H Qty: 60 RF: 0 allopurinol 100 mg tablet 100 mg PO QDAY RF: 0 flunisolide 25 mcg (0.025 %) spray,non-aerosol 2 spray INTRANASAL QDAY PRN (Reason: Congestion) RF: 0 Narcan 4 mg/actuation spray,non-aerosol 1 spray INTRANASAL ONCE RF: 0 olmesartan [Benicar] 40 mg tablet 40 mg PO QDAY RF: 0 polyethylene glycol 3350 17 gram/dose powder 17 g PO QDAY PRN (Reason: Constipation) RF: 0 Discontinued morphine 60 mg tablet extended release 60 mg PO Q12H Qty: 60 RF: 0 Follow Up Plan Patient Disposition: Xfer SNF Prognosis: Fair Rehab Potential: Fair I certify that the patient requires SNF services: Yes Overall status at discharge: patient is progressing back to baseline Discharge Orders: Discharge Order (Routine); Ordered 02/19/20 Ordered By: Tarik Saleem [facility] VTE Deep Vein Thrombosis/Pulmonary Embolism Present on Admission: No
[2020-02-19] MEDS: 0.9 % SODIUM CHLORIDE 10 ML SYRINGE IV SCH ×2 (06:39→12:16)
[2020-02-19 07:30] LABS: ALT/SGPT 37 U/L (<40); AST/SGOT 61 U/L (<40); Albumin 3.1 gm/dL (3.2-5.2); Alkaline Phosphatase 79 U/L (39-117); Bilirubin,Direct < 0.2 mg/dL (<0.3); Bilirubin,Total 0.4 mg/dL (0.1-1.0); Blood Urea Nitrogen 54 mg/dL (8-23); Calcium 8.7 mg/dL (8.6-10.4); Carbon Dioxide 29 mmol/L (22-30); Chloride 107 mmol/L (96-108); Glomerular Filtration Rate 31; Glucose 93 mg/dL (70-105); Lactate Dehydrogenase 422 U/L (135-225); Phosphorous 2.7 mg/dL (2.5-4.5); Triglycerides 125 mg/dL (<150); Uric Acid 11.7 mg/dL (2.5-8.0)
[2020-02-19] MEDS: morphine 30 MG TAB.SR.12H PO SCH (08:02)
[2020-02-19] MEDS: DOCUSATE SODIUM 100 MG CAPSULE PO SCH (08:02)
[2020-02-19] MEDS: GABAPENTIN 300 MG CAPSULE PO SCH (08:02)
[2020-02-19] MEDS: CLOPIDOGREL 75 MG TABLET PO SCH (08:02)
[2020-02-19] MEDS: HEPARIN 5,000 UNIT/ML VIAL SQ SCH (08:03)
--- NOTE | 2020-02-19 08:20 | Internal Med Progress Note ---
SUBJECTIVE Subjective Patient information: Note initiated : 02/19/20 at 8:19 am Service Date, if different from initiated Date: [] Patient: Harley Adkins 79 y/o M admitted on 02/17/20 for Acute Renal Failure. Chief Complaint: [] Interval history: History of present illness: Mr. Adkins is a 79 year old M Who fell several days ago in his bathroom. He says he was wedged between the toilet and the cabinet. He was little unable to get up and then became so stiff he could move. He says he stayed there for day and a half. And started pounding on the wall and his neighbor heard him came in and called EMS who was able to get him up ambulating. He was evaluated in [facility] he had x-rays done which were unremarkable. Old notes he has a history of falling. In the ED at [facility] was evaluated and found to have acute kidney injury. The rhabdomyolysis. He was transferred to [facility] due to staffing issues at [facility] Feels much better with IV fluid hydration. 02/17 Feeling better. Renal function improved. He does have mild clonus of his hands which she has had for about 4 months. Has not seen neurology. 02/18 Feeling better. Renal function improving. Pending follow-up CK. Review of Systems: denies headache/fever/chills/nausea/vomiting/chest or abdominal pain/cough/dyspnea/diarrhea. Otherwise see above. Constitutional Vitals: Vital Signs Temp Pulse Resp BP Pulse Ox 98.3 F 74 16 124/62 94 02/19/20 03:30 02/19/20 03:30 02/19/20 03:30 02/19/20 03:30 02/19/20 03:30 Period Temp Pulse Resp BP Sys/Diamond Pulse Ox Last 24 Hr 98.3 F-100.1 F 74-78 16-22 108-140/61-76 91-94 Intake and Output 02/18/20 02/19/20 02/19/20 21:59 05:59 13:59 Intake Total 980 0 Output Total 1900 1400 Balance -920 -1400 Weight 91.308 kg Intake & Output: Intake & Output 02/18/20 02/19/20 02/19/20 21:59 05:59 13:59 Intake Total 980 0 Output Total 190 1400 Balance -920 -1400 Weight 91.308 kg Intake: IV 500 Sodium Chloride 0.9% 500 ml @ 500 84 mls/hr IV .[id number] [facility] Rx#: [id number] Oral 480 0 Output: Urine Catheter Amount 1899 1400 Other: Meal Dinner Percent of Meal Consumed 50% Feeding Ability Independent Urine Appearance Clear Clear Clear Uretheral (Ibrahim) Clear Clear Urine Color Bright Yellow Bright Yellow Bright Yellow Uretheral (Ibrahim) Bright Yellow Bright Yellow Urine Odor Normal Normal Stool Size Large Stool Color Brown Stool Consistency Soft # Bowel Movements 1 Exam: General: Alert, Awake, No acute Distress Eyes/N/T: EOMI, Head/Neck: neck supple, CV: RRR, No murmurs, normal s1/s2 Pulm: Clear b/l, no wheezing/rhonchi/rales Abd: soft, nontender, +BS x4 Ext: no clubbing/cyanosis/edema Neuro: Alert, no focal deficits, moves all extremities, Skin: warm/dry OBJ DATA Labs CBC & Chem 7: 02/18/20 05:31 02/19/20 05:32 Labs: Abnormal Lab Results 02/19/20 02/18/20 02/18/20 05:32 08:06 05:31 WBC RBC Hgb Hct Plt Count Wirt # (Auto) Carbon Dioxide 31 H Anion Gap BUN 54 H 83 H Creatinine 2.0 H 2.8 H Glucose 145 H Uric Acid 11.7 H 12.3 H Calcium 8.0 L Phosphorus AST 61 H 94 H ALT Lactate Dehydrogenase 422 H 370 H Total Creatine Kinase CK-MB (CK-2) Total Protein 5.4 L Albumin 3.1 L 3.0 L Urine Appearance Urine Protein Urine Ketones Urine Occult Blood Urine RBC 6 H Urine WBC Amorphous Crystals Hyaline Casts Granular Casts Urine Mucus Few A 02/18/20 02/18/20 02/17/20 05:31 05:31 05:33 WBC RBC 3.40 L Hgb 10.6 L Hct 30.9 L Plt Count 139 L Wirt # (Auto) Carbon Dioxide Anion Gap BUN Creatinine Glucose Uric Acid Calcium Phosphorus AST ALT Lactate Dehydrogenase Total Creatine Kinase 3671 H 6496 H CK-MB (CK-2) Total Protein Albumin Urine Appearance Urine Protein Urine Ketones Urine Occult Blood Urine RBC Urine WBC Amorphous Crystals Hyaline Casts Granular Casts Urine Mucus 02/17/20 02/17/20 02/17/20 05:30 05:30 05:15 WBC 11.3 H RBC 3.90 L Hgb 12.0 L Hct 36.3 L Plt Count Wirt # (Auto) 1.08 H Carbon Dioxide 18 L Anion Gap 18.0 H BUN 104 H* Creatinine 5.0 H* Glucose Uric Acid 13.6 H Calcium 7.3 L Phosphorus 7.7 H* AST 132 H ALT 45 H Lactate Dehydrogenase 427 H Total Creatine Kinase CK-MB (CK-2) 121.5 H Total Protein Albumin Urine Appearance Cloudy A Urine Protein 100 A Urine Ketones 5 A Urine Occult Blood >=1.0 A Urine RBC Urine WBC 5 H Amorphous Crystals Few A Hyaline Casts 32 H Granular Casts 21 H Urine Mucus Mod A Meds: Medications Acetaminophen (Tylenol) 650 mg PO Q6HP PRN PRN Reason: PAIN/FEVER > 101 Albuterol/Ipratropium (Duoneb) 3 ml NEB Q4HP PRN PRN Reason: Shortness Of Breath Clopidogrel Bisulfate (Plavix) 75 mg PO QDAY [facility] Last Admin: 02/19/20 08:02 Dose: 75 mg Documented by: Diphenhydramine HCl (Benadryl) 25 mg IV Q4HP PRN PRN Reason: Allergic Symptoms Docusate Sodium (Colace) 100 mg PO BID [facility] Last Admin: 02/19/20 08:02 Dose: 100 mg Documented by: Gabapentin (Neurontin) 300 mg PO TID [facility] Last Admin: 02/19/20 08:02 Dose: 300 mg Documented by: Heparin Sodium (Porcine) (Heparin) 5,000 unit SQ Q12 [facility] Last Admin: 02/19/20 08:03 Dose: 5,000 unit Documented by: Lactated Ringer's (Lactated Ringers) 500 mls @ 0 mls/hr IV PRN PRN PRN Reason: Hypotension Last Infusion: 02/17/20 13:04 Dose: Infused Documented by: Potassium Chloride 40 meq/ (Dextrose) 520 mls @ 130 mls/hr IV UD PRN PRN Reason: Potassium < 3 Magnesium Sulfate (Magnesium Sulfate) 2 gm in 50 mls @ 50 mls/hr IV UD PRN PRN Reason: Magnesium </= 1.6 Morphine Sulfate (Ms Contin) 30 mg PO Q12H [facility]; Protocol Last Admin: 02/19/20 08:02 Dose: 30 mg Documented by: Ondansetron HCl (Zofran) 4 mg IV Q4HP PRN PRN Reason: Nausea And Vomiting Polyethylene Glycol (Miralax) 17 gm PO DAILYP PRN PRN Reason: Constipation Potassium Chloride (Kdur) 40 meq PO UD PRN PRN Reason: Potssium is 3-3.5 Potassium Chloride (Kdur) 40 meq PO UD PRN PRN Reason: Potassium < 3 Senna (Senokot) 2 tab PO DAILYP PRN PRN Reason: Constipation Sodium Chloride (Saline Flush) 10 ml IV Q8 ROMEL Last Admin: 02/19/20 06:39 Dose: Not Given Documented by: A/P Narrative A/P Narrative: A: *JERONIMO on CKD III: improving -Cr 5.8>>2.0 *volume depletion: improved *Rhabdomyolysis: 2/2 duration on ground -improving *Metabolic acidosis: 2/2 above, resolved *h/o Falling/generalized weakness/deconditioning: *h/o Lymphoma: follows with Dr. Lui *Chronic Pain w/neuropathy: *HTN/HLD: *PVD (LE stents): Plavix *Tobacco abuse: *chronic b/l UE myoclonus: will need f/u with neuro *Nighttime confusion, possible ing, clear today: -CT in August P: -IVF -f/u cpk -fall precautions -hold ARB for JERONIMO -cont home plavix -PT/OT -f/u with neurology for chronic b/l UE mycolonus -CM for SNF placement -ppx: Lovenox full code Time Spent With Patient Time: Total time spent is greater than 50% in coordination of care (as documented) at patient's floor/unit and/or counseling patient: QUALITY VTE Deep Vein Thrombosis/Pulmonary Embolism Present on Admission: No
== END 2020-02-19 12:45 | DRG 683 ==
LOC: MEDSUR 03:35
PROVIDERS: ADMIT Internal Medicine; ATTEND Internal Medicine